=== PATIENT | male | born 1990 | race Caucasian/White ===

== ENCOUNTER 2016-12-01 21:03 | Emergency (ER) | payer SELFPAY ==
--- NOTE | 2016-12-01 21:31 | EDM.PDOC ---
ED HPI GENERAL MEDICAL PROBLEM - General Chief Complaint: ENT Problem Stated Complaint: RIGHT EYE PAIN Time Seen by Provider: 12/01/16 21:22 Source of Information: Reports: Patient History Limitations: Reports: No Limitations - History of Present Illness INITIAL COMMENTS - FREE TEXT/NARRATIVE: HISTORY AND PHYSICAL: History of present illness: [Patient comes to the emergency room with a sensation of a foreign body in his right eye. Onset of sensation was around 9 AM this morning and has continued throughout the day. Patient regularly wears contact lenses but he removed from after he felt the foreign body on his eye. Believes the foreign body to be either dust or metal shavings. 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 He's otherwise been feeling well. No fever or chills. He has no other complaints or concerns.] Review of systems: As per history of present illness and below otherwise all systems reviewed and negative. Past medical history: As per history of present illness and as reviewed below otherwise noncontributory. Surgical history: As per history of present illness and as reviewed below otherwise noncontributory. Social history: No reported history of drug or alcohol abuse. Family history: As per history of present illness and as reviewed below otherwise noncontributory. Physical exam: HEENT: Atraumatic, normocephalic. mucous membranes moist, throat clear. PERRLA. EOMI. Left eye is not injected and vision is clear. Right eye is erythematous and injected. Clear tearing present from right eye. No mattering. Proparacaine was applied without difficulty. Uptake of fluorescein stain is visualized over iris extending from 6 to 8 o'clock position. appears consistent with corneal abrasion. No foreign bodies visualized upon exam as well as with eyelid eversion. Neuro: Awake, alert, oriented. Exam nonfocal. Impression: [Corneal abrasion] Plan: [Discussed with patient that he appears to have an abrasion on his right cornea. He is given gentamicin ophthalmic solution in the emergency room and instructed apply 2 drops every 2-4 hours and follow-up with ophthalmology on Monday. Tylenol or ibuprofen for discomfort. Strict return precautions are reviewed with patient. He is in agreement with today's plan. All of his questions are answered and concerns are addressed.] Definitive disposition and diagnosis as appropriate pending reevaluation and review of above. Right Eye Pain Score (Numeric/FACES): 8 - Related Data Allergies Allergy/AdvReac Type Severity Reaction Status Date / Time No Known Allergies Allergy Verified 12/01/16 21:12 Home Meds: Home Meds . [No Known Home Meds] 12/01/16 [History] Past Medical History Respiratory History: Reports: None Gastrointestinal History: Reports: None Genitourinary History: Reports: None Musculoskeletal History: Reports: None Neurological History: Reports: None Psychiatric History: Reports: None Endocrine/Metabolic History: Reports: None Hematologic History: Reports: None Immunologic History: Reports: None Oncologic (Cancer) History: Reports: None Dermatologic History: Reports: None - Past Surgical History Head Surgeries/Procedures: Reports: None HEENT Surgical History: Reports: None Cardiovascular Surgical History: Reports: None Respiratory Surgical History: Reports: None GI Surgical History: Reports: None Male Surgical History: Reports: None Endocrine Surgical History: Reports: None Neurological Surgical History: Reports: None Musculoskeletal Surgical History: Reports: None Social & Family History - Family History Family Medical History: Noncontributory - Tobacco Use Smoking Status *Q: Current Every Day Smoker Years of Tobacco use: 9 Packs/Tins Daily: 0.2 - Caffeine Use Caffeine Use: Reports: Coffee - Recreational Drug Use Recreational Drug Use: No ED ROS ENT - Review of Systems Review Of Systems: ROS reveals no pertinent complaints other than HPI. ED EXAM, ENT - Physical Exam Exam: See Below Course - Vital Signs Last Recorded V/S: Last Vital Signs Temp 98.4 F 12/01/16 21:13 Pulse 78 12/01/16 21:13 Resp 18 12/01/16 21:13 BP 135/84 12/01/16 21:13 Pulse Ox 98 12/01/16 21:13 - Orders/Labs/Meds Orders: Active Orders 24 hr Category Date Time Status Gentamicin [Gentak 0.3% Ophth Oint] Med 12/01/16 22:00 Active 0.5 gm EYERT STAT Medication Orders Gentamicin Sulfate (Gentak 0.3% Ophth Oint) 0.5 gm EYERT STAT MIRELA Last Admin: 12/01/16 21:52 Dose: 0.5 gm Meds: Medications Generic Name Dose Route Start Last Admin Trade Name Freq PRN Reason Stop Dose Admin Gentamicin Sulfate 0.5 gm 12/01/16 22:00 12/01/16 21:52 Gentak 0.3% Ophth Oint EYERT 0.5 gm STAT MIRELA Administration Discontinued Medications Generic Name Dose Route Start Last Admin Trade Name Gunnarq PRN Reason Stop Dose Admin Proparacaine HCl 1 ml 12/01/16 21:32 12/01/16 21:35 Proparacaine 0.5% Ophth Soln EYELF 12/01/16 21:33 1 ml ONETIME ONE Administration Departure - Departure Time of Disposition: 21:45 Disposition: Home, Self-Care 01 Condition: Good Clinical Impression: Corneal abrasion, right - Discharge Information Instructions: Corneal Abrasion, [id number] Referrals: PCP,None [Primary Care Provider] - Forms: ED Department Discharge Additional Instructions: The following information is given to patients seen in the emergency department who are being discharged to home. This information is to outline your options for follow-up care. We provide all patients seen in our emergency department with a follow-up referral. The need for follow-up, as well as the timing and circumstances, are variable depending upon the specifics of your emergency department visit. If you don't have a primary care physician on staff, we will provide you with a referral. We always advise you to contact your personal physician following an emergency department visit to inform them of the circumstance of the visit and for follow-up with them and/or the need for any referrals to a consulting specialist. The emergency department will also refer you to a specialist when appropriate. This referral assures that you have the opportunity for follow-up care with a specialist. All of these measure are taken in an effort to provide you with optimal care, which includes your follow-up. Under all circumstances we always encourage you to contact your private physician who remains a resource for coordinating your care. When calling for follow-up care, please make the office aware that this follow-up is from your recent emergency room visit. If for any reason you are refused follow-up, please contact the [facility] emergency department at and asked to speak to the emergency department charge nurse. [address] [address] Follow-up with an prescriptionist at the clinic listed above on Monday. Apply antibiotic drops 2 drops every 2-4 hours. Tylenol or ibuprofen for discomfort. Return to ER as needed as discussed. - My Orders Last 24 Hours: My Active Orders 12/01/16 22:00 Gentamicin [Gentak 0.3% Ophth Oint] 0.5 gm EYERT STAT - Assessment/Plan Last 24 Hours: My Active Orders 12/01/16 22:00 Gentamicin [Gentak 0.3% Ophth Oint] 0.5 gm EYERT STAT
[2016-12-01] MEDS ORDERED: Proparacaine 0.5% Ophth Soln 15 ML Bottle EYELF ONE (21:32)
[2016-12-01 23:17] VITALS: BP 128/65
== END 2016-12-01 22:01 | disposition home or self-care (01) ==
LOC: MW.ED 21:03
DX: S05.01XA Injury of conjunctiva and corneal abrasion without foreign body, right eye, initial encounter (principal); F17.210 Nicotine dependence, cigarettes, uncomplicated; X58.XXXA Exposure to other specified factors, initial encounter
CPT/HCPCS: 99283; A9270; 99282